=== PATIENT | female | born 1995 | race African-American/Black ===

== ENCOUNTER 2020-01-03 14:35 | Emergency (ER) | payer OTHER, SELFPAY ==
[2020-01-03 14:50] VITALS: BP 125/68; PULSE 83; RESP 16; TEMP 36.9; O2SAT 99
--- NOTE | 2020-01-03 14:56 | ED.SKABFB ---
HPI - Skin/Abscess/Foreign Bdy General Chief complaint: Skin/Abscess/Foreign Body Stated complaint: rash Time Seen by Provider: 01/03/20 14:56 Source: patient Mode of arrival: ambulatory Limitations: no limitations History of Present Illness HPI narrative: Ladonna Brooks is a 24 yo female with no PMH who comes to express care with [facility] under bilatrral underarms. It started a few days ago. Patient has changed deodorant and laundry detergent in the last week Related Data Home Medications Medication Instructions Recorded Confirmed norethindrone-e.estradiol-iron 1 tablet PO DAILY 01/03/20 01/03/20 [Blisovi 24 Fe] Allergies Allergy/AdvReac Type Severity Reaction Status Date / Time No Known Allergies Allergy Unknown Verified 01/03/20 14:53 Review of Systems Review of Systems: Narrative: CONSTITUTIONAL: Denies fever, chills, sweats. EYES: Denies visual changes, redness, discharge. ENT: Denies rhinorrhea, congestion, sore throat, otalgia. CARDIOVASCULAR: Denies chest pain, palpitations, edema. RESPIRATORY: Denies dyspnea, wheezing, cough GASTROINTESTINAL: Denies abdominal pain, nausea, vomiting, diarrhea. GENITOURINARY: Denies dysuria, hematuria, abnormal discharge SKIN: Has rash under axilla bilaterally NEUROLOGIC: Denies numbness, or focal weakness. PSYCHIATRIC: Denies anxiety or depression. [facility] Family History Family History Other Hypertension Social History Social History Smoking status: Never smoker Alcohol intake: never Comments Medical social and surgical history is been reviewed; these histories are relevant to the reason patient is seen today Exam Narrative: Exam Narrative: GENERAL: This is a well-nourished, well-developed patient, in mild distress. HEAD: normocephalic, atraumatic. EYES: PERRL. Sclera clear/white. Vision is grossly intact. EARS: External ears normal, auditory canals clear and without drainage, TMs normal without perforation. Hearing grossly intact. NOSE: External nose normal without nasal discharge, nares without redness, no rhinorrhea. THROAT: Mucous membranes moist, posterior pharynx NECK: Neck supple, non-tender CARDIOVASCULAR: Regular rate and rhythm without murmurs, gallops, or rubs. RESPIRATORY: Clear to auscultation. Breath sounds equal bilaterally. No wheezes, rales, or rhonchi. GASTROINTESTINAL: Abdomen soft, non-tender, SKIN: warm, intact with no suspicious lesions , bilateral rash near under arms, mildly paretic and red, papular NEURO: awake, alert, and oriented to person, place and time. There were no obvious focal neurologic abnormalities. Steady gait EXTREMITIES: Normal range of motion. BACK: Nontender without deformity Course Course Emergency Course: Started on Benadryl and hydrocortisone cream; is not changing multiple care products at same time Vital Signs Vital signs: Vital Signs Temperature 98.5 F 01/03/20 14:50 Pulse Rate 83 01/03/20 14:50 Respiratory Rate 16 01/03/20 14:50 Blood Pressure 125/68 01/03/20 14:50 Pulse Oximetry 99 01/03/20 14:50 Temperature 98.5 F 01/03/20 14:50 Pulse Rate 83 01/03/20 14:50 Respiratory Rate 16 01/03/20 14:50 Blood Pressure 125/68 01/03/20 14:50 Pulse Oximetry 99 01/03/20 14:50 MDM - Skin/Abscess/Foreign Bdy Differential Diagnosis Differential diagnosis: Likely eczema, insect bites, contact dermatitis and other Discharge Plan Discharge Clinical Impression: Contact dermatitis Qualifiers: Contact dermatitis type: allergic Contact dermatitis trigger: other chemical product Qualified Code(s): L23.5 - Allergic contact dermatitis due to other chemical products Patient Disposition: Home, Self-Care Condition: Stable Instructions: Contact Dermatitis (ED) Prescriptions: New diphenhydramine HCl [Benadryl] 25 mg capsule 25 mg PO Q6H PRN (Reason: itching) Qty:
== END 2020-01-03 15:12 | disposition home or self-care (01) ==
PROVIDERS: Emergency Provider Nurse Practitioner
DX: L23.5 Allergic contact dermatitis due to other chemical products (principal)
CPT/HCPCS: 99213; G0463

== ENCOUNTER 2023-04-05 11:40 | Emergency (ER) | payer OTHER, SELFPAY ==
[2023-04-05 11:50] VITALS: BP 105/90; PULSE 83; RESP 16; TEMP 36.3; O2SAT 100
--- NOTE | 2023-04-05 11:53 | ED.EYEPROB ---
HPI - Eye Problem General Chief complaint: Eye Problems Stated complaint: Cough;Righteye Time Seen by Provider: 04/05/23 11:53 Source: patient Mode of arrival: ambulatory Limitations: no limitations History of Present Illness HPI Narrative: 27 yo F presents with c/o cough at night, nasal congestion for 3 days. Started allergy medication yesterday. Afebrile. Reports redness to R eye starting yesterday. Noticed drainage from R eye this AM. No pain but feels irritated. All systems reviewed and negative except as noted above. Related Data Allergies Allergy/AdvReac Type Severity Reaction Status Date / Time No Known Allergies Allergy Unknown Verified 04/05/23 11:43 Review of Systems Review of Systems: CONSTITUTIONAL: Denies fever, chills, or sweats. EYES: Denies visual changes. Reports redness, discharge right eye. ENT: Reports rhinorrhea, congestion. Denies sore throat, or otalgia. CARDIOVASCULAR: Denies chest pain, palpitations, or edema. RESPIRATORY: Reports cough. Denies dyspnea. GASTROINTESTINAL: Denies abdominal pain, nausea, vomiting, or diarrhea. GENITOURINARY: Denies dysuria or hematuria. SKIN: Denies rash or itching. MUSCULOSKELETAL: Denies back pain, joint pain, or myalgia. NEUROLOGIC: Denies headache, numbness, or weakness. PSYCHIATRIC: Denies anxiety or depression. All other systems reviewed are negative, except as documented in HPI. PMFSH Family History Family History (System 01/04/20 @ 07:59 by Cristy Brito) Other Hypertension Social History Social History (System 01/04/20 @ 07:59 by Cristy Brito) Smoking status: Never smoker Alcohol intake: never Comments At time of signature, agree with nursing past medical, surgical, social and family history. There is no relevant family history pertinent to the presenting complaint. Exam Narrative: GENERAL: This is a well-nourished, well-developed patient, in no apparent distress. HEAD: normocephalic, atraumatic. EYES: PERRL. Sclera and conjunctiva right eye erythematous, injected. Yellow drainage from right eye. Left eye is normal. Vision is grossly intact. EARS: External ears normal, auditory canals clear and without drainage, TMs normal without perforation. Hearing grossly intact. NOSE: External nose normal with clear postnasal drainage with erythema to both nares. THROAT: Mucous membranes moist, no erythema swelling or exudates to posterior pharynx. Clear postnasal drainage noted. NECK: Neck supple, non-tender without lymphadenopathy, masses or thyromegaly. CARDIOVASCULAR: Regular rate and rhythm without murmurs, gallops, or rubs. RESPIRATORY: Clear to auscultation. Breath sounds equal bilaterally. No wheezes, rales, or rhonchi. SKIN: warm, Dry, intact with no suspicious lesions or rash, good texture and turgor. NEURO: awake, alert, and oriented to person, place and time. There were no obvious focal neurologic abnormalities. EXTREMITIES: No joint tenderness, effusion, or edema noted. Course Course Level of Care: Express Care Visit Vital Signs Vital signs: Vital Signs Temperature 36.3 C L 04/05/23 11:50 Pulse Rate 83 04/05/23 11:50 Respiratory Rate 16 04/05/23 11:50 Blood Pressure 105/90 04/05/23 11:50 Pulse Oximetry 100 04/05/23 11:50 Oxygen Delivery Room Air 04/05/23 11:50 Temperature 36.3 C L 04/05/23 11:50 Pulse Rate 83 04/05/23 11:50 Respiratory Rate 16 04/05/23 11:50 Blood Pressure 105/90 04/05/23 11:50 Pulse Oximetry 100 04/05/23 11:50 Oxygen Delivery Room Air 04/05/23 11:50 Reviewed MDM - Eye Problem MDM Narrative Medical decision making narrative: Patient is aware of diagnosis, understands and agrees to treatment plan. Anticipatory guidance given. Patient agrees to follow-up as directed and is aware of reasons to seek care at the emergency department. Portions of this record may have been created with voice recognition software Differential Diagnosis
== END 2023-04-05 12:04 | disposition home or self-care (01) ==
PROVIDERS: Emergency Provider Nurse Practitioner Family; PCP Internal Medicine
DX: J01.90 Acute sinusitis, unspecified (principal); H10.31 Unspecified acute conjunctivitis, right eye
CPT/HCPCS: 99203; G0463

== ENCOUNTER 2023-04-06 15:41 | Emergency (ER) | payer SELFPAY ==
[2023-04-06 16:01] VITALS: BP 117/75; PULSE 102; RESP 16; TEMP 36.5; O2SAT 100
--- NOTE | 2023-04-06 16:17 | ED.URI ---
HPI - URI/Sore Throat General Chief Complaint: Upper Respiratory Infection Stated Complaint: SWOLLEN THROAT Time Seen by Provider: 04/06/23 16:11 Source: patient and RN notes reviewed Mode of arrival: ambulatory Limitations: no limitations History of Present Illness HPI Narrative: Patient presents today complaining of sore throat that started yesterday and is worse today with congestion, postnasal drip, body aches and chills. Denies fever. She was seen yesterday at [facility] and treated for pinkeye. She has been taking TheraFlu and Tylenol as well as allergy medication without much relief. Related Data Home Medications Medication Instructions Recorded Confirmed adapalene 0.1 %-benzoyl peroxide 0.01 ea topical DAILY 04/06/23 04/06/23 2.5 % topical gel with pump Allergies Allergy/AdvReac Type Severity Reaction Status Date / Time No Known Allergies Allergy Unknown Verified 04/06/23 15:49 Review of Systems Review of Systems: CONSTITUTIONAL: Denies fever, or sweats+ body aches, chills. EYES: Denies visual changes, redness, or discharge. ENT: Denies rhinorrhea, or otalgia.+ congestion, sore throat, postnasal drip CARDIOVASCULAR: Denies chest pain, palpitations, or edema. RESPIRATORY: Denies cough or dyspnea. GASTROINTESTINAL: Denies abdominal pain, nausea, vomiting, or diarrhea. GENITOURINARY: Denies dysuria or hematuria. SKIN: Denies rash, itching, or wounds. MUSCULOSKELETAL: Denies back pain, joint pain, or myalgia. NEUROLOGIC: Denies headache, numbness, tingling, or weakness. PSYCH: Denies depression or anxiety. PMFSH Family History Family History Other Hypertension Social History Social History Smoking status: Never smoker Alcohol intake: never Comments At time of signature, I have reviewed and agree with nursing past medical, surgical, social and family history unless otherwise noted. Please see nursing chart for further information. There is no relevant family history pertinent to the presenting complaint Exam Narrative: GENERAL: Well-appearing, well-nourished, and in no acute distress. HEAD: Normocephalic, atraumatic. EYES: EOMI. No redness or drainage. Conjunctivae normal. ENT: Mucous membranes pink and moist. Nares clear. No rhinorrhea. TMs normal bilaterally. Throat erythematous. Tonsils 3+ with white exudate. Uvula midline. NECK: Normal AROM. Bilaterally anterior cervical chain lymphadenopathy.Supple. CHEST: No respiratory distress. Clear to auscultation. HEART: Regular rate and rhythm. No murmur appreciated. Normal peripheral pulses. EXTREMITIES: Normal range of motion. No edema. SKIN: Warm, dry, no rash. Capillary refill normal. Normal skin turgor. NEURO: No focal deficits. Alert and oriented x3. Gait steady. PSYCH: Normal affect. No signs of depression or anxiety. Course Course Level of Care: Express Care Visit Vital Signs Vital signs: Vital Signs Temperature 97.7 F 04/06/23 16:01 Pulse Rate 102 H 04/06/23 16:01 Respiratory Rate 16 04/06/23 16:01 Blood Pressure 117/75 04/06/23 16:01 Pulse Oximetry 100 04/06/23 16:01 Temperature 97.7 F 04/06/23 16:01 Pulse Rate 102 H 04/06/23 16:01 Respiratory Rate 16 04/06/23 16:01 Blood Pressure 117/75 04/06/23 16:01 Pulse Oximetry 100 04/06/23 16:01 Reviewed MDM - URI/Sore Throat MDM Narrative Medical decision making narrative: Rapid strep positive. Will treat with amoxicillin. Discussed [id number]-[id number] treatment as well. Anticipatory guidance given. Differential Diagnosis Differential diagnosis: Likely upper respiratory infection, viral infection, pharyngitis and other (Strep throat) Lab Data Attestation: I reviewed the patient's lab results. Labs: Strep Screen Positive Group A Strep *(Reference R
== END 2023-04-06 16:23 | disposition home or self-care (01) ==
PROVIDERS: Emergency Provider Nurse Practitioner; PCP Internal Medicine
DX: J02.0 Streptococcal pharyngitis (principal)
CPT/HCPCS: 87880; 99213; G0463

== ENCOUNTER 2023-09-15 15:49 | Emergency (ER) | payer MEDICAID, SELFPAY ==
--- NOTE | 2023-09-15 15:53 | ED.URI ---
HPI - URI/Sore Throat General Chief Complaint: Upper Respiratory Infection Stated Complaint: Lightheaded;Cough Time Seen by Provider: 09/15/23 15:59 Source: patient, RN notes reviewed and old records reviewed Mode of arrival: ambulatory Limitations: no limitations History of Present Illness HPI Narrative: 28-year-old female presents to the [facility] with cough, feeling lightheaded, body aches, runny nose that started 3 days ago Tylenol and [id number] cold and flu medicine Treatments prior to arrival: acetaminophen and cold medicine Related Data Home Medications Medication Instructions Recorded Confirmed adapalene 0.1 %-benzoyl peroxide 0.01 ea topical DAILY 04/06/23 09/15/23 2.5 % topical gel with pump Allergies Allergy/AdvReac Type Severity Reaction Status Date / Time No Known Allergies Allergy Unknown Verified 09/15/23 15:56 Review of Systems Review of Systems: All systems reviewed & are unremarkable except as noted in HPI and below Constitutional: Constitutional: Reports as per HPI, Reports body ache(s) and Reports fatigue Eyes: Eyes: Reports no additional eye complaints ENT: Reports as per HPI Cardiovascular: Cardiovascular: Reports no additional cardiovascular complaints, Denies chest pain and Denies dyspnea Respiratory: Respiratory: Reports as per HPI, Denies chest congestion, Reports cough and Denies dyspnea Gastrointestinal: Gastrointestinal: Reports no additional gastrointestinal complaints, Denies abdominal pain, Denies nausea and Denies vomiting Musculoskeletal: Musculoskeletal: Reports no additional musculoskeletal complaints Integumentary/Breasts: Skin/Breast: Reports system reviewed and no additional complaints, except as docu Neurologic: Reports system reviewed and no additional complaints, except as documented Psychiatric: Psychiatric: Reports no additional psychiatric complaints Allergic/Immunologic: Allergic/Immunologic: Reports no additional allergic/immunologic complaints PMFSH Family History Family History Other Hypertension Social History Social History Smoking status: Never smoker Alcohol intake: never Comments At the time of my signature, I reviewed and agree with the nursing past medical, surgical, social, and family history. There is no relevant family history pertinent to the patient complaint. Exam Const: General: cooperative, healthy appearing, comfortable, no acute distress, well developed, alert and well nourished Nutritional Appearance: well nourished Orientation/consciousness: patient oriented x3 Limitations: no limitations HENMT: Head: normal to inspection Ears: hearing grossly normal bilaterally and external ears normal Face/Nose/Sinus: Normal external nose present, Normal nares present, Normal nasal mucous membranes and turbinates present, Nasal discharge present clear bilateral, normal facial exam and face symmetric Face and sinus: normal facial exam and face symmetric Mouth: Yes Normal oral and palatal mucosa present, Yes lip normal and Yes moist mucous membranes Throat: posterior oropharynx normal and uvula midline Eyes: General: appearance normal, both eyes and all related structures Alignment and Position: alignment normal Periorbital: periorbital findings normal Pupils: Equal, round and reactive pupils present EOM: EOMs intact bilaterally Neck: Neck: normal visual inspection, full ROM, no lymphadenopathy and no meningeal signs Chest: Chest palpation & inspection: normal inspection of the chest Resp: Effort & Inspection: normal respiratory effort and able to speak in complete sentences Auscultation: clear to auscultation bilaterally, no crackles, no rales, no rhonchi and no wheezes Cardio: Rate: regular rate Rhythm: regular rhythm Back/Spine/Pelvis: Cervical Spine: cervical ROM normal Skin: General skin exam: normal
[2023-09-15 16:03] VITALS: BP 120/77; PULSE 116; RESP 16; TEMP 38; O2SAT 99
== END 2023-09-15 16:17 | disposition home or self-care (01) ==
PROVIDERS: Emergency Provider Nurse Practitioner; PCP Internal Medicine
DX: J10.1 Influenza due to other identified influenza virus with other respiratory manifestations (principal); Z20.822 Contact with and (suspected) exposure to COVID-19
CPT/HCPCS: 87426; 87804; 99213; G0463

== ENCOUNTER 2024-10-14 18:33 | Emergency (ER) | payer OTHER, SELFPAY ==
[2024-10-14 18:57] VITALS: BP 126/84; PULSE 101; RESP 16; TEMP 36.4; O2SAT 100
--- NOTE | 2024-10-14 19:18 | ED.GENADULT ---
HPI - General Adult General Chief complaint: Weakness Stated complaint: TIRED/LIGHT HEADED Time Seen by Provider: 10/14/24 19:05 Source: patient, RN notes reviewed and old records reviewed Mode of arrival: ambulatory Limitations: no limitations History of Present Illness HPI narrative: 29 year old female who resents to express care with complaints of feeling fatigued and lightheaded since last night and worse in the light. Patient reports that she has been having some sinus congestion drainage and pressure for the past 2-3 weeks and has been using saline rinses and nasal flushes. She states that she started taking Advil cold and sinus today . Patient voices concern with symptoms mother diagnosed with influenza 2 days ago. MD complaint: fatigued lightheaded sinus congestion and pressure Onset (ago): week(s) (2-3 weeks sinus congestion and pressure, lightheaded since yesterday evening) Treatments prior to arrival: other (saline flushes and nasal rinses., Advil cold and sinus) Related Data Home Medications ?Medication ?Instructions ?Recorded ?Confirmed ?Last Taken ?Type norethindrone 1 mg-ethinyl tablet 10/14/24 Unknown History estradiol 20 mcg (24)-iron 75 mg (4) tablet (Blisovi 24 Fe) Allergies Allergy/AdvReac Type Severity Reaction Status Date / Time No Known Allergies Allergy Unknown Verified 10/14/24 18:51 Review of Systems Review of Systems: CONSTITUTIONAL: reports malaise, no chills, sweats, or fever. exhausted EYES: Denies visual changes, redness, or discharge. ENT: Positive for rhinorrhea, congestion, sinus pain, no otalgia and no sore throat. CARDIOVASCULAR: Denies chest pain, palpitations, or edema. RESPIRATORY: Reports cough.? Denies dyspnea. GASTROINTESTINAL: Denies abdominal pain, nausea, vomiting, diarrhea SKIN: Denies rash or itching. MUSCULOSKELETAL: Denies myalgia. NEUROLOGIC: some headache. All systems reviewed & are unremarkable except as noted in HPI and below PMFSH Past Medical History Medical History (Updated 10/18/24 @ 21:04 by Johanne Tuttle NP) History of strep sore throat Family History Family History Other Hypertension Social History Social History (Reviewed 01/25/24 @ 18:39 by TIN Flores Smoking status: Never smoker Alcohol intake: never Comments At time of signature, agree with nursing past medical, surgical, social and family history. There is no relevant family history pertinent to the presenting complaint Exam Narrative: GENERAL: Well-appearing, well-nourished, and in no acute distress. HEAD: Normocephalic EYES: PERRLA, conjunctivae clear ENT: Nares clear, turbinates edematous and erythematous, clear discharge sinus pressure and headache pain. Mucous membranes moist. TM pearly hopkins with dull light reflex bilaterally; no tragal tenderness. Oropharynx erythematous without lesions. Tonsils not enlarged and without exudate, no drooling, no hoarseness, no trismus, uvula midline.post nasal drainage NECK: Supple. No lymphadenopathy CHEST: Clear to auscultation, breath sounds equal. No wheezing, rhonchi, rales, or stridor. No respiratory distress, speaks in full sentences.no acute cough noted SAO2 100% on room air HEART: Regular rate and rhythm. No murmur heard. SKIN: Warm, dry, no rash. NEURO: Alert and oriented x3. PSYCH: Normal mood and affect Course Course Emergency Course: Patient is aware of diagnosis, understands and agrees to treatment plan.? Anticipatory guidance given.? Patient agrees to follow-up as directed and is aware of reasons to seek care at the emergency department. Portions of this record may have been created with voice recognition software Level of Care: Express Care Visit Vital Signs Vital signs: Vital Signs Temperature 36.4 C L 10/14/24 18:57 Pulse Rate 101 H 10/14/24 18:57 Respiratory Rate 16 10/14/24 18:57 Blood Pressure 126/84 10/14/24 18:57 Pulse Oximetry 100 10/14/24 18:57 Temperature 36.4 C L 10/14/24 18:57 Pulse Rate 101 H 10/14/24 18:57 Respiratory Rate 16 10/14/24 18:57 Blood Pressure 126/84 10/14/24 18:57 Pulse Oximetry 100 10/14/24 18:57 Reviewed Medical Decision Making Differential Diagnosis Differential Diagnosis: URI, sinusitis, viral infection, influenza, COVID Medical Records Medical records reviewed: Yes I reviewed the external patient's medical records. Vital Signs Vital Signs: Vital Signs Temperature 36.4 C L 10/14/24 18:57 Pulse Rate 101 H 10/14/24 18:57 Respiratory Rate 16 10/14/24 18:57 Blood Pressure 126/84 10/14/24 18:57 Pulse Oximetry 100 10/14/24 18:57 Temperature 36.4 C L 10/14/24 18:57 Pulse Rate 101 H 10/14/24 18:57 Respiratory Rate 16 10/14/24 18:57 Blood Pressure 126/84 10/14/24 18:57 Pulse Oximetry 100 10/14/24 18:57 Lab Data Lab results reviewed: Yes I reviewed the patient's lab results. Lab results narrative: Influenza A negative. Influenza B negative Covid antigen negative Labs: Lab Results 10/14/24 Range/Units 19:38 POC Influenza A Ag Negative (Negative) POC Influenza B Ag Negative (Negative) POC SARS CoV-2 Ag Negative (Negative) reviewed Critical Care Time Critical Care Time Critical Care Time: No Discharge Plan Discharge Clinical Impression: Sinusitis Qualifiers: Sinusitis location: pansinusitis Chronicity: acute Recurrence: not specified as recurrent Qualified Code(s): J01.40 - Acute pansinusitis, unspecified Patient Disposition: Home, Self-Care Condition: Stable Instructions: Antibiotic Form, Sinusitis (ED) Additional Instructions: Increase fluids especially juices and water [id number] cough and cold medicine of your choice for your symptoms Zyrtec Claritin or Gaye daily antibiotic as prescribed complete all doses nasal saline flush as needed Tylenol or ibuprofen for any fever pain heat to the face 20-30 minutes 4-6 times a day for pain Salt water gargles, throat lozenges or throat sprays as desired If your symptoms persist, change or worsen significantly before you can contact your personal physician then please, without delay, go to the emergency department for further evaluation. Follow-up with PCP in 7-10 days or sooner if needed Follow up with PCP soon in regards to your blood pressure which is elevated above threshold for referral. Blood pressure above 120/80 may indicate pre-hypertension. 126/84 minimal elevation Patient Language: Maori Prescriptions: New amoxicillin-pot clavulanate 875-125 mg tablet 1 tablet PO Q12H Qty: 20 0RF Rx Instructions: take all doses of oral medication as prescribed No Action Blisovi 24 Fe 1 mg-20 mcg (24)/75 mg (4) tablet Follow-up/Referrals: Adam,Oscar Varner MD [Primary Care Provider] - Time of Disposition: 19:24 Quality [place] Coma Scale Eyes: Open Verbal: Oriented and Alert Motor: Follows Commands Megan Coma Total Score: 15
[2024-10-14 19:39] LABS: EDCOVIDSCREEN Negative (Negative); EDINFLUASCREEN Negative (Negative); EDINFLUBSCREEN Negative (Negative)
== END 2024-10-14 19:28 | disposition home or self-care (01) ==
PROVIDERS: Emergency Provider Registered Nurse; PCP Internal Medicine
DX: J01.40 Acute pansinusitis, unspecified (principal); Z20.822 Contact with and (suspected) exposure to COVID-19
CPT/HCPCS: 87426; 87804; 99213; G0463

== ENCOUNTER 2024-12-18 10:35 | Emergency (ER) | payer OTHER, SELFPAY ==
[2024-12-18 10:45] VITALS: BP 120/76; PULSE 90; RESP 16; TEMP 36.6; O2SAT 100
--- NOTE | 2024-12-18 10:45 | ED.EYEPROB ---
HPI - Eye Problem General Chief complaint: Eye Problems Stated complaint: EYE IRRITATION Time Seen by Provider: 12/18/24 10:46 Source: patient and RN notes reviewed Mode of arrival: ambulatory Limitations: no limitations History of Present Illness HPI Narrative: 29-year-old female presents with concern for bilateral eye irritation. Reports yesterday her eyes seemed a little pink an or irritated overnight. She took her contacts out last night put new ones in this morning. She usually sleeps in her contacts. She denies any current eye pain, vision changes, drainage. MD chief complaint: eye redness Related Data Home Medications ?Medication ?Instructions ?Recorded ?Confirmed ?Last Taken ?Type norethindrone 1 mg-ethinyl tablet 10/14/24 Unknown History estradiol 20 mcg (24)-iron 75 mg (4) tablet (Blisovi 24 Fe) Allergies Allergy/AdvReac Type Severity Reaction Status Date / Time No Known Allergies Allergy Unknown Verified 12/18/24 10:50 Review of Systems Review of Systems: CONSTITUTIONAL: Denies malaise, chills, sweats, or fever. EYES: Denies visual changes. Reports redness, irritation. Denies discharge. ENT: Denies rhinorrhea, congestion, sinus pain, otalgia or sore throat. SKIN: Denies rash or itching. NEUROLOGIC: Denies numbness, weakness, or headache. PSYCHIATRIC: Denies anxiety or depression. All systems reviewed & are unremarkable except as noted in HPI and below PMFSH Past Medical History Medical History (Updated 12/18/24 @ 10:51 by Angela Abad NP) History of strep sore throat Family History Family History Other Hypertension Social History Social History Smoking status: Never smoker Alcohol intake: never Comments At time of signature, agree with nursing past medical, surgical, social and family history. There is no relevant family history pertinent to the presenting complaint Exam Narrative: GENERAL: Well-appearing, well-nourished, and in no acute distress. HEAD: Normocephalic, atraumatic. EYES: PERRLA and EOMI. No nystagmus. Bilateral sclera and conjunctivae clear, no drainage. Upper and lower eyelid unremarkable, no periorbital edema noted ENT: Nares clear. Mucous membranes moist. NECK: Supple. CHEST: No respiratory distress. Speaks in full sentences. HEART: Regular rate and rhythm. SKIN: Warm, dry, no visible rash. NEURO: Alert and oriented x3. PSYCH: Normal mood and affect Course Course Emergency Course: Patient is aware of diagnosis, understands and agrees to treatment plan. Anticipatory guidance given. Patient agrees to follow-up as directed and is aware of reasons to seek care at the emergency department. Portions of this record may have been created with voice recognition software Level of Care: Express Care Visit Vital Signs Vital signs: Reviewed. MDM - Eye Problem MDM Narrative Medical decision making narrative: Consideration of the following conditions may be warranted for the presenting problem, they are not final diagnoses: Bacterial conjunctivitis, allergic conjunctivitis, viral conjunctivitis, foreign body, blepharitis, chalazion, hordeolum, corneal abrasion, preseptal cellulitis, orbital cellulitis. No evidence of proptosis, ophthalmoplegia, vision loss, pain with eye movement. Exam findings show no acute concerns or changes; patient is non-toxic appearing and is in no distress. Patient is appropriate for outpatient treatment and follow-up. Critical Care Time Critical Care Time Critical Care Time: No Discharge Plan Discharge Clinical Impression: Irritation of both eyes Patient Disposition: Home Condition: Stable Instructions: General Patient Instructions Additional Instructions: 1) Please follow-up with your primary care doctor or eye doctor as needed. 2) If you have any urgent concerns please go to the ER. 3) Please continue taking your home medications as usual. Patient Language: [place] Citizen Prescriptions: No Action Blisovi 24 Fe 1 mg-20 mcg (24)/75 mg (4) tablet amoxicillin-pot clavulanate 875-125 mg tablet 1 tablet PO Q12H Qty: 20 0RF Rx Instructions: take all doses of oral medication as prescribed Follow-up/Referrals: Adam,Oscar Varner MD [Primary Care Provider] - Time of Disposition: 10:51
== END 2024-12-18 10:52 | disposition home or self-care (01) ==
PROVIDERS: Emergency Provider Nurse Practitioner; PCP Internal Medicine
DX: H57.89 Other specified disorders of eye and adnexa (principal)
CPT/HCPCS: 99211; G0463

== ENCOUNTER 2025-04-03 11:34 | Emergency (ER) | payer BC, SELFPAY ==
--- NOTE | ~2025-04-03 | XR_ITS ---
XR foot LT min 3V 04/03/2025 11:54 INDICATION: Left foot pain PROCEDURE: 4 views left foot COMPARISON: No prior studies FINDINGS: Fracture, dislocation or subluxation is not identified. The soft tissues appear within norm al limits. No foreign bodies are identified. IMPRESSION: 1: NO ACUTE BONE OR JOINT ABNORMALITY IDENTIFIED. Reviewed, dictated and finalized at location A.
[2025-04-03 11:45] VITALS: BP 110/77; PULSE 101; RESP 16; TEMP 36.1; O2SAT 100
--- NOTE | 2025-04-03 11:45 | ED.GENADULT ---
HPI - General Adult General Chief complaint: Extremity Injury, Lower Stated complaint: left foot pain Time Seen by Provider: 04/03/25 11:38 Source: patient Mode of arrival: ambulatory Limitations: no limitations History of Present Illness HPI narrative: Pt is a 29 y/o female presenting with c/o pain to the L. foot x 1 month. She states she thinks she dropped something on her L. foot 1 month ago. No tx initiated [employer]. No paresthesias. No additional complaints. Related Data Home Medications ?Medication ?Instructions ?Recorded ?Confirmed ?Last Taken ?Type norethindrone 1 mg-ethinyl tablet 10/14/24 Unknown History estradiol 20 mcg (24)-iron 75 mg (4) tablet (Blisovi 24 Fe) semaglutide (weight loss) 1.7 mg subcut 04/03/25 Unknown History mg/0.75 mL subcutaneous pen injector (Wegovy) Allergies Allergy/AdvReac Type Severity Reaction Status Date / Time No Known Allergies Allergy Unknown Verified 04/03/25 11:42 Review of Systems Review of Systems: CONSTITUTIONAL: Denies body aches, fever, chills, or sweats. EYES: Denies visual changes, redness, or discharge. ENT: Denies rhinorrhea, congestion, sore throat, or otalgia. CARDIOVASCULAR: Denies chest pain, palpitations, or edema. RESPIRATORY: Denies cough or dyspnea. GASTROINTESTINAL: Denies abdominal pain, nausea, vomiting, or diarrhea. GENITOURINARY: Denies dysuria or hematuria. SKIN: Denies rash, itching, or wounds. MUSCULOSKELETAL: reports pain to the L. foot Denies back pain NEUROLOGIC: Denies headache, numbness, tingling, or weakness. PSYCH: Denies depression or anxiety. All systems reviewed & are unremarkable except as noted in HPI and below PMFSH Past Medical History Medical History History of strep sore throat Family History Family History Other Hypertension Social History Social History Smoking status: Never smoker Alcohol intake: never Exam Narrative: GENERAL: Well-appearing, well-nourished, and in no acute distress. HEAD: Normocephalic, atraumatic. EYES: EOMI. No redness or drainage. Conjunctivae normal. NECK: Normal AROM. Supple. CHEST: No respiratory distress. HEART: Regular rate. Normal peripheral pulses. MUSCULOSKELETAL: Mild TTP to the distal 4th and 5th metatarsals on the L. foot-no crepitus, erythema, edema, ecchymosis. +FROM +DNVI to the LLE SKIN: Warm, dry, no rash. Capillary refill normal. Normal skin turgor. NEURO: No focal deficits. Alert and oriented x3. Gait steady. PSYCH: Normal affect. No signs of depression or anxiety. Course Course Level of Care: Express Care Visit Vital Signs Vital signs: Vital Signs Temperature 96.9 F L 04/03/25 11:45 Pulse Rate 101 H 04/03/25 11:45 Respiratory Rate 16 04/03/25 11:45 Blood Pressure 110/77 04/03/25 11:45 Pulse Oximetry 100 04/03/25 11:45 Temperature 96.9 F L 04/03/25 11:45 Pulse Rate 101 H 04/03/25 11:45 Respiratory Rate 16 04/03/25 11:45 Blood Pressure 110/77 04/03/25 11:45 Pulse Oximetry 100 04/03/25 11:45 Medical Decision Making Vital Signs Vital Signs: Vital Signs Temperature 96.9 F L 04/03/25 11:45 Pulse Rate 101 H 04/03/25 11:45 Respiratory Rate 16 04/03/25 11:45 Blood Pressure 110/77 04/03/25 11:45 Pulse Oximetry 100 04/03/25 11:45 Temperature 96.9 F L 04/03/25 11:45 Pulse Rate 101 H 04/03/25 11:45 Respiratory Rate 16 04/03/25 11:45 Blood Pressure 110/77 04/03/25 11:45 Pulse Oximetry 100 04/03/25 11:45 Imaging Data Attestation: I personally reviewed and interpreted this imaging study as follows: (NAF) Discharge Plan Discharge Clinical Impression: Acute pain of left foot Patient Disposition: Home Condition: Stable Instructions: Foot Contusion (ED) Additional Instructions: Go straight to ER should your symptoms become worse or should any new symptoms develop Patient Language: [place]an Prescriptions: No Action Blisovi 24 Fe 1 mg-20 mcg (24)/75 mg (4) tablet Wegovy 1.7 mg/0.75 mL pen injector SUBCUT Follow-up/Referrals: Adam,Oscar Varner MD [Primary Care Provider] - 04/03/25 Time of Disposition: 12:10
== END 2025-04-03 12:14 | disposition home or self-care (01) ==
PROVIDERS: Emergency Provider Registered Nurse; PCP Internal Medicine
DX: M79.672 Pain in left foot (principal)
CPT/HCPCS: 73630; 99213; G0463

== ENCOUNTER 2025-07-08 22:09 | Emergency (ER) | payer BC, SELFPAY ==
--- OUTSIDE RECORDS SUMMARY | 2017-08-01 02:09 | XMS_ITS | Continuity of Care Document ---
Author Organization [facility] Address [address] [place] [address] Phone Care Team Providers Care Key Account Coordinator Name Role Phone Thueshelia PTColte Unavailable Unavailable Procedures Procedure Date Therapeutic Exercise Therapeutic Activities Neuromuscular Re-Ed Manual Therapy PT Evaluation Low Complexity Therapeutic Exercise Neuromuscular Re-Ed Manual Therapy Advance Directives Directive Yes / No Effective Date File Name No Information Encounters Encounter Description Practice Location Reason(s) For Visit Diagnoses Date Provider Providers Copied on Encounter [facility], [address], [place], [place], [id number], tel:[phone] [place] No Information Jul- 7 Thuet Nakul. [address], [facility], [place]. tel: [phone] [facility], [address], [place], [place], [id number], tel:[phone] [place] No Information Dec-0 7 Thuet Nakul. [address] [facility], [facility] [address], [place], [facility], [place]. tel: [phone] Referring Provider: Wander Salas, [address], [place], [address]. tel:[phone] [facility], [address], [place], [place], [id number], [place] tel:[phone] [place] Concussion without loss of consciousness, subs encntrLabyrinthine dysfunction, unspecified earDizziness and giddinessCervicalgia Headache 6-201 7 uet Nakul. [address] [facility], [address], [place], [address], [place]. tel:[phone] Referring Provider: Wander aSlas, [address], [place], [address]. tel:[phone] Family History Family Member Type Diagnosis Age At Onset No Information Payers Payer name Insurance type Covered republican ID Authoriza tion(s) No Information Social History Type Description Quantity Date Captured Comments Sex Female Smoking Status No Information Chief Complaint And Reason For Visit No Information Reason For Referral Reason For Referral No Information History Of Present Illness Encounter Date Complaint History Of Prese nt Illness No Information Functional Status Date Functional Assessmen t No Information Instructions Date Instruction Additional Infor mation No Information Assessments Type Assessment Date No Information Patient Care Teams Name Effective Dates (start - stop) Status Members No Information
[2025-07-08 22:12] VITALS: BP 116/79; PULSE 109; RESP 20; TEMP 36.5; O2SAT 100
[2025-07-09 00:38] LABS: Alanine Aminotransferase 24 U/L (6-35); Albumin Level 4.4 g/dL (3.5-5.1); Alkaline Phosphatase 84 U/L (38-126); Anion Gap 9 mmol/L (4-12); Aspartate Amino Transferase 36 U/L (14-36); Bilirubin,Total 0.7 mg/dL (0.2-1.3); Blood Urea Nitrogen 10 mg/dL (7-17); Calcium 9.4 mg/dL (8.4-10.2); Carbon Dioxide 26 mmol/L (22-30); Chloride 101 mmol/L (98-107); Estimated CRCL calculation 98 ml/min; Estimated Glomerular Filt Rate > 60; Glucose 79 mg/dL (65-110); Lipase 72 U/L (23-300); Potassium 3.7 mmol/L (3.4-5.0); Sodium 136 mmol/L (137-145); Total Protein 8.4 g/dL (6.3-8.2)
[2025-07-09 00:45] LABS: Add Urine Microscopic? YES; Appearance Urine Cloudy (Clear); Glucose Urine UA Negative (Negative); Leukocyte Esterase Ur Trace LEU/UL (Negative); Need Manual Microscopic Reviewed; Nitrate Urine Negative (Negative); Specific Grav Ur 1.026 (1.001-1.035)
[2025-07-09 00:46] LABS: Hematocrit 42.5 % (37.0-47.0); Hemoglobin 13.5 g/dL (12.0-15.0); Immature Granulocyte Percent A 4.3 % (0-0.5); Lymphocytes Absolute Auto 1.51 K/mm3 (0.9-3.2); Mean Corpuscular HGB Conc 31.8 g/dl (32-36); Mean Corpuscular Hemoglobin 27.5 pg (26-34); Mean Corpuscular Volume 86.6 fl (80-100); Nucleated Red Blood Cells Absolute Auto 0.000 K/mm3 (0.0-0.012); Nucleated Red Blood Cells Perc 0.0 % (0.0-0.2); Platelet Count Result 366 k/mm3 (150-375); Red Blood Count 4.91 M/mm3 (4.2-5.4); White Blood Count 6.3 K/mm3 (4.5-10.0)
[2025-07-09 01:58] LABS: BEDSIDEPREGUCG Negative (Negative)
[2025-07-09] MEDS: KETOROLAC 30 MG/ML VIAL (*BKC) IV PUSH (02:03)
[2025-07-09] MEDS: ONDANSETRON INJ 4 MG/2 ML VIAL IV PUSH (02:03)
[2025-07-09] MEDS: SODIUM CHLORIDE 0.9% IV 1,000 ML 999 ML IV CONT (02:03)
--- NOTE | 2025-07-09 02:11 | ED_ITS ---
HPI - General Adult General Chief complaint: Nausea/Vomiting/Diarrhea Stated complaint: I vomited 8 times today Time Seen by Provider: 07/09/25 01:07 History of Present Illness HPI narrative: 29-year-old female presenting with nausea/vomiting since early this morning. Patient reports she took her GLP-1 yesterday after having not taken it for about a month. She also reports a headache, increased urinary urgency, and generalized abdominal pain. Denies diarrhea, fevers/chills, chest pain/shortness of breath, dysuria, hematuria, increased urinary frequency. States she tried to take Zofran earlier but could not keep it down. Related Data Home Medications ?Medication ?Instructions ?Recorded ?Confirmed ?Last Taken ?Type norethindrone 1 mg-ethinyl tablet 10/14/24 Unknown Hi story estradiol 20 mcg (24)-iron 75 mg (4) tablet (Blisovi 24 Fe) semaglutide (weight loss) 1.7 mg subcut 04/03/25 Unkn own History mg/0.75 mL subcutaneous pen injector (Wegovy) Allergies Allergy/AdvReac Type Severity Reaction Status Date / Time No Known Allergies Allergy Unknown Verified 07/08/25 22:12 Review of Systems 2 Review of Systems: All systems reviewed & are unremarkable except as noted in HPI and below PMFSH Past Medical History Medical History History of strep sore throat Family History Family History Other Hypertension Social History Social History Smoking status: Never smoker Alcohol intake: never Exam 2 Narrative: GENERAL: Appears fatigued. Well-nourished, and in no acute distress. HEAD: Normocephalic, atraumatic. EYES: PERRLA and EOMI. ENT: Nares clear, no rhinorrhea or epistaxis. Mucous membranes moist. Oropharynx without tonsillar hypertrophy exudate or other lesions. Bilateral TMs pearly hopkins non-bulging NECK: Supple. No adenopathy or masses. No carotid bruits or JVD CHEST: Clear to auscultation. No respiratory distress. No wheezes rales or rhonchi HEART: Regular rate and rhythm. No murmur heard. Normal peripheral pulses. ABDOMEN: Soft and nondistended. Decreased bowel sounds and mild diffuse TTP. EXTREMITIES: Normal range of motion. No edema. SKIN: Warm, dry, no rash. NEURO: No focal deficits. Alert and oriented x3. PSYCH: Normal mood and affect Course Vital Signs Vital signs: Vital Signs Temperature 97.7 F 07/08/25 22:12 Pulse Rate 109 H 07/08/25 22:12 Respiratory Rate 20 07/08/25 22:12 Blood Pressure 116/79 07/08/25 22:12 Pulse Oximetry 100 07/08/25 22:12 Oxygen Delivery Room Air 07/08/25 22:12 Temperature 97.7 F 07/08/25 22:12 Pulse Rate 76 07/09/25 03:11 Respiratory Rate 16 07/09/25 03:11 Blood Pressure 115/76 07/09/25 03:11 Pulse Oximetry 99 07/09/25 03:11 Oxygen Delivery Room Air 07/08/25 22:12 Medical Decision Making MDM Narrative Medical decision making narrative: 29-year-old female presenting with nausea/vomiting since early this morning. Patient reports she took her GLP-1 yesterday after having not taken it for about a month. She also reports a headache, increased urinary urgency, and generalized abdominal pain. Denies diarrhea, fevers/chills, hematemesis, chest pain/shortness of breath, dysuria, hematuria, increased urinary frequency. States she tried to take Zofran earlier but could not keep it down. Labs WNL. Urinalysis shows findings consistent with urinary tract infection will be treated outpatient with Keflex. Vitals are stable. Administered 1 L NS, Zofran, and Toradol. Patient reported improvement in symptoms. Advised patient stop taking GLP-1 until she speaks with her PCP. Patient agrees with discussion and after shared medical decision making agrees with plan of care. Reports she already has Zofran at home. All questions were answered to the patient's satisfaction. The patient is appropriate for outpatient treatment and follow-up. Given reasons to return. Medical Records Medical records reviewed: Yes I reviewed the external patient's medical records. Vital Signs Vital Signs: Vital Signs Temperature 97.7 F 07/08/25 22:12 Pulse Rate 109 H 07/08/25 22:12 Respiratory Rate 20 07/08/25 22:12 Blood Pressure 116/79 07/08/25 22:12 Pulse Oximetry 100 07/08/25 22:12 Oxygen Delivery Room Air 07/08/25 22:12 Temperature 97.7 F 07/08/25 22:12 Pulse Rate 76 07/09/25 03:11 Respiratory Rate 16 07/09/25 03:11 Blood Pressure 115/76 07/09/25 03:11 Pulse Oximetry 99 07/09/25 03:11 Oxygen Delivery Room Air 07/08/25 22:12 Lab Data Lab results reviewed: Yes I reviewed the patient's lab results. 07/09/25 00:18 07/09/25 00:18 Labs: Lab Results 07/09/25 07/09/25 07/09/25 Range/Units 00:14 00:18 00:24 WBC 6.3 (4.5-10.0) K/mm3 RBC 4.91 (4.2-5.4) M/mm3 Hgb 13.5 (12.0-15.0) g/dL Hct 42.5 (37.0-47.0) % MCV 86.6 (80-100) fl MCH 27.5 (26-34) pg MCHC 31.8 L (32-36) g/dl RDW 14.0 (11.5-14.5) % Plt Count 366 (150-375) k/mm3 MPV 10.3 (7.4-10.4) fl Immature Gran % (Auto) 4.3 H (0-0.5) % Neut % (Auto) 67.2 (45.5-73.1) % Lymph % (Auto) 23.9 (18.3-44.2) % [place] % (Auto) 3.6 (2.6-8.5) % Eos % (Auto) 0.2 (0-4.4) % Baso % (Auto) 0.8 (0.2-1.2) % Lymph # (Auto) 1.51 (0.9-3.2) K/mm3 [place] # (Auto) 0.2 (0.1-0.6) K/mm3 Eos # (Auto) 0.0 (0-0.3) K/mm3 Baso # (Auto) 0.1 (0.0-0.1) K/mm3 Abs Immat Gran (auto) 0.27 H (0.00-0.031) K/mm3 Absolute Neuts (auto) 4.2 (1.3-6.7) K/mm3 Absolute Nucleated RBC 0.000 (0.0-0.012) K/mm3 Nucleated RBC % 0.0 (0.0-0.2) % Sodium 136 L (137-145) mmol/L Potassium 3.7 (3.4-5.0) mmol/L Chloride 101 (98-107) mmol/L Carbon Dioxide 26 (22-30) mmol/L Anion Gap 9 (4-12) mmol/L BUN 10 (7-17) mg/dL Creatinine 0.75 (0.7-1.0) mg/dL Estim Creat Clear Calc 98 ml/min Estimated GFR > 60 (59 - ) Glucose 79 (65-110) mg/dL Calcium 9.4 (8.4-10.2) mg/dL Total Bilirubin 0.7 (0.2-1.3) mg/dL AST 36 (14-36) U/L ALT 24 (6-35) U/L Alkaline Phosphatase 84 (38-126) U/L Total Protein 8.4 H (6.3-8.2) g/dL Albumin 4.4 (3.5-5.1) g/dL Lipase 72 (23-300) U/L Urine Color Dark yellow (Yellow) Urine Appearance Cloudy H (Clear) Urine pH 6.0 (5.0-9.0) Ur Specific [place] 1.026 (1.001-1.035) Urine Protein 1+ H (Negative) mg/dL Urine Glucose (UA) Negative (Negative) mg/dL Urine Ketones 3+ H (Negative) mg/dL Ur Blood (Man) 3+ H (Negative) Urine Nitrate Negative (Negative) Urine Bilirubin Negative (Negative) Urine Urobilinogen 1.0 (<2.0) mg/dL Add Ur Microanalysis Reviewed Leukocyte Esterase Rfl Trace H (Negative) DARWIN/UL Urine RBC >100 H (0-2) /hpf Urine WBC 11-20 H (0-3) /hpf Ur Squamous Epith Cells Moderate (Few) /hpf Urine Bacteria 3+ H /hpf Urine Casts 3-5 POC Urine HCG, Qual Negative (Negative) Discharge Plan Discharge Clinical Impression: UTI (urinary tract infection), Vomiting Patient Disposition: Home Condition: Stable Instructions: Antibiotic Form, Urinary Tract Infection in Women (ED), Acute Nausea and Vomiting (ED) Additional Instructions: Return to the emergency department if you experience fever, chest pain, shortness of breath, abdominal pain with nausea and vomiting, weakness, numbness/tingling, or any other symptoms that are concerning to you. Take antibiotic as prescribed. Follow up with primary care doctor. Patient Language: Occitan Prescriptions: New cephalexin 250 mg capsule 250 mg PO Q6H Qty: 21 0RF No Action Blisovi 24 Fe 1 mg-20 mcg (24)/75 mg (4) tablet Wegovy 1.7 mg/0.75 mL pen injector SUBCUT Follow-up/Referrals: Adam,Oscar Varner MD [Primary Care Provider, Unknown]
--- OUTSIDE RECORDS SUMMARY | 2025-07-09 02:30 | XMS_ITS | Data Portability ---
Author Organization [employer] [facility] Address [address] [address] Assessment No assessment recorded. Plan of Treatment Reminders Order Date Submit Date Provider Last Modified By Organization Details Last Modified Time Details Appointments None record ed. Lab None record ed. Referral None record ed. Procedures None record ed. Surgeries None record ed. Imaging None record ed. Medication Orders None record ed. Patient TargetsNo targets recorded. Patient InstructionsNo instructions recorded. Reason for Referral None Reported. Problems No Known Problems Medical Equipment None Reported. Allergies No known drug allergies Medications Name Sig Start Date Stop Date Status Note LastModified by Organization Details LastModified Time meloxicam 15 mg tablet active Not Available Not Available No t Available terconazole 0.8 % vaginal cream 2016 completed Not Available Not Available Not Available Epiduo 0.1 %-2.5 % topical gel with pump active Not Available Not Available No t Available Blisovi 24 Fe 1 mg-20 mcg (24)/75 mg (4) tablet active Not Available Not Available N ot Available Vitals Date Recorded Body height Body mass index (BMI) Body weight Heart rate Systolic And Diastolic Provider Name and Address Organization Details Last Updated DateTime 07/25/2017 162.56 cm 25.7 kg/m2 11160.86 g 80 /min 111/68 mm[Hg] Calvin Brandon [employer] 07/25/2017 14:19:27 Social History Question Answer Notes LastModified by Organizat ion Details LastModified Time Tobacco Smoking Status Never Smoker Calvin banks [employer] 07/25/2017 14:20:25 Marital Status Single Informatio n not available 07/25/2017 What Was The Date Of Your Most Recent Tobacco Screening? 07/25/2017 Information not available 03/15/2019 How Much Tobacco Do You Smoke? No Information not available 07/25/2017 What Types Of Sporting Activities Do You Participate In? Basketball Information not available 07/25/2017 Sex: Unknown Functional Status Question Answer Note LastModified by Organizat ion Details LastModified Time What is your level of alcohol consumption? 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 Heavy Information not available 07/25/2017 Mental Status None recorded. Family History Nothing Reported. Medical History Condition Response HIV or AIDS N Coronary Artery Disease N Gout N Kidney Stones N Hyperthyroidism N Head Trauma/Injury Y Hernia N Hypothyroidism N Lung Disease N Blood Clots N COPD N Depression N Pacemaker N Anxiety Disorder N Arthritis N Cancer N Stroke N Leg or Foot Ulcers N Neck Injury N High Cholesterol N Liver Disease N Rheumatoid Arthritis N Fibromyalgia N Headaches N Kidney Disease N Heart Problems N Migraines N Thyroid Problems N Anemia N Multiple Sclerosis N Ulcers N Heart Attack (HI) N Diabetes N Bleeding Disorder N Seizures/Epilepsy N Tuberculosis N Urinary Tract Infection N Back Problems N Diverticulitis N Asthma N Lupus N Peripheral Vascular Disease N Sleep Disorder N GERD/Reflux N Hepatitis N Aneurysm N Heart Disease N Pulmonary Embolism N Hypertension N Osteoporosis N Gynecological HistoryNo gynecological history recorded. Obstetrics History GPAL:G 0 P 0 0 0 0 Past Encounters Encounter ID Performer Location Encounter Start Date Encounter Closed Date Diagnosis/Indication Diagnosis SNOMED-CT Code Diagnosis ICD10 Code Diagnosis IMO Codes Diagnosis Note [id number] Wander Salas MD [facility] [address] [facility] ,[address] [place] [address] 07/25/2017 13:50:19 07/25/2017 16:54:03 Concussion with no loss of consciousness [id number] S06.0X0A Health Concerns Section Related Observation LastModified by Organization Detai ls LastModified Time None Recorded Concern Status LastModified by Organization Details LastModified Time None Recorded Advance Directives Directive None Recorded Payers Insurance Date Sequence Insurance Name Policy Number Policy Oliver Covered Member ID Oliver Member ID Guarantor Name 07/25/2017 1 [employer] - DOS PRIOR TO 21 - [facility] [employer] [employer] Elizabeth Brooks [id number] Ladonna Long Episode No OBEpisode recorded.
--- OUTSIDE RECORDS SUMMARY | 2025-07-09 02:31 | XMS_ITS | Clinical Summary ---
Author Organization [facility] [address] Address [address] [place] [address] Phone Care Team Providers Care Educator Senior Clinical Name Role Phone Oscar Medina MD Primary Care Provider [phone] Allergies No known active allergies Medications norethindrone-e .estradioL-iron (Blisovi 24 Fe) 1 mg-20 mcg (24)/75 mg (4) per tablet Take 1 tablet by mouth daily 84 tablet 3 5 Active adapalene-benzo yl peroxide 0.1-2.5 % gel with pumpIndications :Acne, unspecified acne type APPLY ONCE DAILY TO THE FACE 45 g 1 5 Active semaglutide (Wegovy) 1.7 mg/0.75 mL auto-injectorIn dications:Obesi ty, Class I, BMI 30-34.9 Inject 1.7 mg under the skin every 7 days 3 mL 1 5 Active ondansetron (ZOFRAN) 4 mg tabletIndicatio ns:Nausea and Vomiting Take 1 tablet (4 mg total) by mouth every 8 (eight) hours as needed for nausea or vomiting 21 tablet 5 Active clindamycin (CLEOCIN T) 1 % gel Apply to face once daily. 180 g 1 4 06/14/20 25 Additional Information Patient not taking.Reported on 02/05/2025 Active Problems Problem Noted Date Diagnosed Date Mixed hyperlipidemia 02/05/2025 Assessment & Plan (02/05/2025 6:19 PM CDT): Total cholesterol 235 LDL 159 patient is not on cholesterol medicine recently started GLP 1 therapy Wegovy. Straightening up dose will check lipid level in 3 months in April. Obesity, Class I, BMI 30-34.9 05/23/2024 Assessment & Plan (02/05/2025 6:18 PM CDT): Patient is on would go away she has just started 1 mg dose with a little bit of nausea. Continue titrate up accordingly. She has noticed decreased appetite in his began to lose weight 5 lb in the last 30 days. Comorbidities elevated lipid level. Assessment & Plan (05/23/2024 1:27 PM CDT): 28-year-old lady who is concerned regarding her weight. BMI is 34.6 she is 5 ft 4 weight 201 lb. Patient's comorbidity is hyperlipidemia total cholesterol 235 patient is not diabetic. Discussed with this patient her weight she has tried multiple diets not able to sustain weight loss. Patient has gained 21 lb in 3 years.. 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 Immunization for hepatitis-B . Anxiety 05/23/2024 Assessment & Plan (05/23/2024 1:31 PM CDT): Patient is feels anxiety for several days low intensity she does not have panic attacks. Anxiety revolves around her parents who are getting older. Both parents remains gainfully employed father is a RN and her mother has a supervising in education. My opinion she does not need any medications at this time . If in anxiety increase in the intensity she may benefit from counseling. Cognitive therapy. Her fall was the patient's mind who is stable with hypertension hyperlipidemia and obesity. I am not aware of details on patient's mother's health status. Preventative health care 09/09/2023 Assessment & Plan (02/05/2025 6:16 PM CDT): History and physical completed patient's health risk assessment health maintenance reviewed and addressed. Patient is advised she needs to have 1 final varicella vaccine. 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 Patient is started on Wegovy approximately 6 weeks ago she is tolerating medication. She has no other health concerns other than weight reduction. Assessment & Plan (09/09/2023 2:10 PM TRACK REPAIR PERSON): 28-year-old lady who is here for annual exam she feels well her only active health problems his active. 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 Immunizations reviewed states varicella as needed I have given this information on to the patient to review her old records on immunizations. She has a pharmacist determine if she needs another injection Acne 04/04/2012 Assessment & Plan (09/09/2023 2:13 PM TRACK REPAIR PERSON): Acne well controlled with epiduo- 0.2-2.5% gel with pump./adapalene- benzoyl peroxide. Resolved Problems Problem Noted Date Diagnosed Date Resolved Date School physical exam 06/02/2018 024 Assessment & Plan (04/03/2021 2:00 PM CDT): Patient has to have a school physical. 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 Patient's exam is completely normal. 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 Appropriate forms were filled out BC was necessary and patient was given a copy original forms to forward back to her University. Patient has has on file at the [facility] her immunization record. Assessment & Plan (02/09/2019 5:23 PM CDT): Patient was seen in May for physical exam. She has recently graduated from college in will be going off to graduate school to get a degree in pharmacy pain school physical required. Patient exam is completely normal. Forms are filled out appropriately lab required is a hemoglobin hematocrit. The blood test for TB is also requested. Immunization records reviewed.. I do not have information regarding patient's immunization for metacarpal meningitis. Advised her local per records from her entry into colleges rigidly it may indicate she has received this.. Only immunization given today is tetanus. Assessment & Plan (06/02/2018 5:53 PM CDT): 22-year-old lady here for preventive health exam. Patient no acute distress she review of systems negative other than she used the medication Epiduo for acne. Patient's family history prep hypertension patient patient exam is benign. 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 Encounters Date Type Department Care Team Description 05/06/2025 Telephone [facility] [address] [place] [address] Oscar Medina MD from Last 3 Months Immunizations Immunization Administration Dates Next Due DTP 04/05/2001, 7,01/23/1996,10/11 DTaP 04/09/1998 HPV, Quadrivalent 03/10/2010 HPV, Unspecified 03/10/2010,02/19/2009, 7 Hep A, Pediatric 03/19/2008,02/28/2007 Hep A, Unspecified 03/19/2008,02/28/2007 Hep B, Adolescent or Pediatric 09/19/1996,1995,1995 Hep B, Unspecified 09/19/1996,1995, 995 HiB 04/09/1998, 7,01/23/1996,10/11 Hib (PRP-D) 04/09/1998, 7,01/23/1996,10/11 IPV 04/05/2001 Influenza, Quadrivalent, Ashli l Culture-based MDCK, Preservative Free, Antibiotic Free, Intramuscular 06/01/2018 Influenza, Trivalent, Preser vative Free, Intramuscular 05/21/2024 Influenza, Unspecified 06/01/2023(Deferred: Elif ent Refused) MMR 04/05/2001,09/19/1996 MMRV 03/29/2019 Meningococcal ACWY, Unspecified 12/31/2013,02/28 Meningococcal MCV4P (Menactra) 12/31/2013 Meningococcal Polysaccharide (Menomune) 02/28/2007 OPV 1995,1995 OPV, Unspecified 01/23/1996 PPD TEST 04/05/2001,04/09/1998 PPD TEST, UNSPECIFIED 04/05/2001,04/09/1998 Tdap 02/09/2019, 8,04/19/2018,04/04,04/04/2006 Social History Tobacco Use Types Packs/Day Years Used Date Smoking Tobacco: Never Smokeless Tobacco: Never Tobacco Cessation:Counseling Given: Not Answered PHQ-2 Answer Date Recorded PHQ-2 Total Score (If total score is 3 or more points, staff should administer the PHQ-9) 0 02/05/2025 Comments No Sex and Gender Information Value Date Recorded Sex Assigned at Not on file Legal Sex Female 3:22 AM TRACK REPAIR PERSON Gender Identity Not on file Sexual Orientation Not on file Occupation Industry Job Start Date Job End Date Not on file Not on file Not on file Not on file Obstetrics History Para Term AB IAB SAB Ectopic Multiple Livin g Live Births 2 0 0 0 2 2 0 0 0 0 0 Date Outcome GA Total Labor Labor/2nd/3rd Weight Sex Type Anes PTL Ellen A1 A5 Name Clin IAB IAB Last Filed Vital Signs Vital Sign Reading Time Taken Comments Blood Pressure 112/66 02/05/2025 1:44 PM CDT Pulse 93 02/05/2025 1:44 PM CDT Temperature 36.2 C (97.1 F) 02/05/2025 1:44 PM CDT Respiratory Rate 16 02/05/2025 1:44 PM CDT Oxygen Saturation 98% 02/05/2025 1:44 PM CDT Inhaled Oxygen Concentration - - Weight 81.2 kg (179 lb) 04/30/2025 10:33 AM CDT Height 162.6 cm (5' 4) 02/05/2025 1:44 PM CDT Body Mass Index 30.73 02/05/2025 1:44 PM CDT Plan of Treatment Health Maintenance Due Date Last Done Comments Varicella Vaccines (2 of 2 - 13+ 2-dose series) 04/26/2019 03/29/2019 Cervical Cancer Screening 09/29/2024 09/29/2023 Influenza Vaccine (#1) 2025 05/21/2024, 2017 Depression Screening 02/05/2026 02/05/2025, 05/21/2024, 09/08/2023, Additional history exists Regular Well Visit/Exam 18-64 02/05/2026 02/05/2025, 01/04/2025, 09/29/2023, Additional history exists DTaP/Tdap/Td Vaccine (11 - Td or Tdap) 02/09/2029 02/09/2019, 04/19/2018, 04/19/2018, Additional history exists Hepatitis B Screening Completed 09/19/1996 , 09/19/1996, 1995, Additional history exists HPV Vaccines Completed 03/10/2010, 02/20, 02/19/2009, Additional history exists Hepatitis C Screening Completed 05/22/2024 Pneumococcal vaccine <65 Aged Out No longer eligible based on patient's age to complete this topic Procedures Procedure Name Priority Date/Time Associated Diagnosis Comments HEPATITIS C ANTIBODY Routine 05/22/2024 2:34 PM CDT Immunity status testing PAP WITH REFLEX TO HIGH RISK HPV Routine 09/29/2023 9:15 AM TRACK REPAIR PERSON Screening for malignant neoplasm of cervix from Last 3 Months or Most Recently Relevant to Health Maintenance Results * Hepatitis C antibody Blood (05/22/2024 2:34 PM CDT) Hep C Ab Nonreactive Nonreactive Comment: Interpretive Data Nonreactive: Antibodies to HCV not detected. Does NOT exclude the possibility of recent exposure to HCV. Equivocal: Equivocal for HCV antibodies. Supplemental molecular testing will be automatically performed to determine infection status in accordance with current CDC screening recommendations. Reactive: Positive for HCV antibodies. This may represent current or past HCV infection. Supplemental molecular testing will be automatically performed to determine current infection status in accordance with current CDC screening recommendations. Interpretive data was last revised on 2019. Testing performed by: [facility], [address] [place] [address]., [id number] Blood 05/22/2024 2:34 PM CDT 05/22/2024 7:57 PM CDT Oscar Medina MD LAB MICROBIOLOGY - GENERAL ORDERABLES Final Result [facility] [address] Department of Laboratories [place], [place] [id number] * Pap with reflex to High Risk HPV and Genotyping (Cytology Component) (09/29/2023 9:15 AM TRACK REPAIR PERSON) Thin prep (Pap test) 09/29/2023 9:15 AM TRACK REPAIR PERSON 09/29/2023 9:15 AM TRACK REPAIR PERSON Narrative PATHOLOGY - 10/05/2023 3:14 PM TRACK REPAIR PERSON [facility] Department of Pathology [address] [place] [id number] Final Report Note to Patients: This report may contain a detailed description of human tissue sent by a health care provider to the laboratory for pathologic evaluation. The content of this report is essential for diagnosis and may provide important critical findings. This information may be unfamiliar to patients to review without a medical professional present. It is advised that the patient review this report in the presence of a health care provider who can answer questions and explain the details. Patient Name: JAK BROOKS Address: [address] [place] [address], [place] [address] Gender: F : 1995 (Age: 28) Service: Location: [facility] : [id number] [facility] #: [id number] Patient Type: SPECIMEN Taken: 09/29/2023 Received: 09/29/2023 Accessioned:: 09/30/2023 Reported: 10/05/2023 Physician(s): Yanira Almonte D.O. Diagnosis: SOURCE OF SPECIMEN Imaged Thinprep Pap Test w/ Reflex HPV - Court Administrator Cytologic Material: STATEMENT OF ADEQUACY - Satisfactory for evaluation; endocervical/transformation zone component present GENERAL CATEGORIZATION: - Negative for intraepithelial lesion or malignancy INTERPRETATION: - Reactive/reparative cell changes - Predominance of coccobacilli consistent with shift in vaginal megan. Possible bacterial vaginosis KAYLEE Solorio(ASCP)Sergio Lopez M.D. Report Electronically Reviewed and Signed Out By Sergio Lopez M.D. 10/05/2023 15:14:19Specimen(s) Received: A: Imaged Thinprep Pap Test w/ Reflex HPV - Court Administrator Cytologic Material Clinical History: Last Menstrual Period: 09/22/23 The Pap test is a screening test used to aid in the detection of cervical cancer and its precursors. It should not be the sole means by which malignant and premalignant lesions are diagnosed. Both false negative and false positive results may occur. It also has poor sensitivity for the detection of endometrial lesions and should not be used to evaluate suspected endometrial abnormalities. For these reasons it is most important to obtain Pap tests at regular intervals. The performance characteristics of some immunohistochemical stains, fluorescence in-situ hybridization tests and immunophenotyping by flow cytometry cited in this report (if any) were determined by the Surgical Pathology Department at [facility] as part of an ongoing supplier quality specialist program and in compliance with federally mandated regulations drawn from the Clinical Laboratory Improvement Act of 1988 (CLIA '88). Some of these tests rely on the use of analyte specific reagents and are subject to specific labeling requirements by the US Food and Drug Administration. Such diagnostic tests may only be performed in a facility that is certified by the Department of Health and Human Services as a high complexity laboratory under CLIA '88. The FDA has determined that such clearance or approval is not necessary. This test is used for clinical purposes. It should not be regarded as investigational or for research. Nevertheless, federal rules concerning the medical use of analyte specific reagents require that the following disclaimer be attached to the report: This test was developed and its performance characteristics determined by the Surgical Pathology Department [facility]. It has not been cleared or approved by the U. S. Food and Drug Administration. Orly Canales DO LAB CYTOLOGY ORDERABLES Final Result PATHOLOGY [address] [place] [address] from Last 3 Months or Most Recently Relevant to Health Maintenance Insurance [facility] [id number] [facility] Care Teams Educator Senior Clinical Relationship Specialty Start Date End Date Oscar Medina MD PCP - General Internal Medicine 05/30/18
[2025-07-09 03:11] VITALS: BP 115/76; PULSE 76; RESP 16; O2SAT 99
== END 2025-07-09 03:11 | disposition home or self-care (01) ==
PROVIDERS: Emergency Medicine; PCP Internal Medicine
DX: N39.0 Urinary tract infection, site not specified (principal); R11.2 Nausea with vomiting, unspecified
CPT/HCPCS: 36415; 80053; 81001; 81025; 83690; 85025; 96361; 96374; 96375; 99284; J1885; J2405; J7030

== ENCOUNTER 2025-07-16 09:51 | Emergency (ER) | payer BC, SELFPAY ==
--- NOTE | 2025-07-16 09:55 | ED_ITS ---
HPI - Female Genitourinary General Chief complaint: Urogenital-Female Stated complaint: YEAST INFECTION Time Seen by Provider: 07/16/25 10:03 Source: patient, RN notes reviewed and old records reviewed Mode of arrival: ambulatory Limitations: no limitations History of Present Illness HPI Narrative: 29-year-old female presents to the [facility] with concerns for a yeast infection. Reports discomfort, some burning, irritation vaginally. Started yesterday. No treatment prior to arrival. Patient recently on antibiotics for a UTI which she reports she is not having issues. Denies concerns for STIs. Denies any frequency urgency or burning with urination. Related Data Home Medications ?Medication ?Instructions ?Recorded ?Confirmed ?Last Taken ?Type norethindrone 1 mg-ethinyl tablet 10/14/24 Unknown Hi story estradiol 20 mcg (24)-iron 75 mg (4) tablet (Blisovi 24 Fe) Allergies Allergy/AdvReac Type Severity Reaction Status Date / Time No Known Allergies Allergy Unknown Verified 07/16/25 09:58 Review of Systems Review of Systems: All systems reviewed & are unremarkable except as noted in HPI and below Constitutional: Constitutional: Reports no additional constitutional complaints ENT: Reports system reviewed and no additional complaints, except as documented Cardiovascular: Cardiovascular: Reports no additional cardiovascular complaints, Denies chest pain and Denies dyspnea Respiratory: Respiratory: Reports no additional respiratory complaints, Denies chest congestion, Denies cough and Denies dyspnea Genitourinary: Genitourinary: Reports as per HPI Musculoskeletal: Musculoskeletal: Reports no additional musculoskeletal complaints Integumentary/Breasts: Skin/Breast: Reports system reviewed and no additional complaints, except as docu [facility] Past Medical History Medical History History of strep sore throat Family History Family History Other Hypertension Social History Social History Smoking status: Never smoker Alcohol intake: never Comments At the time of my signature, I reviewed and agree with the nursing past medical, surgical, social, and family history. There is no relevant family history pertinent to the patient complaint. Exam Const: General: cooperative, healthy appearing, comfortable, no acute distress, well developed, alert and well nourished Nutritional Appearance: well nourished Orientation/consciousness: patient oriented x3 Limitations: no limitations HENMT: Head: normal to inspection Eyes: General: appearance normal, both eyes and all related structures Alignment and Position: alignment normal Neck: Neck: normal visual inspection, full ROM, no lymphadenopathy and no meningeal signs Chest: Chest palpation & inspection: normal inspection of the chest Resp: Effort & Inspection: normal respiratory effort and able to speak in complete sentences Auscultation: clear to auscultation bilaterally, no crackles, no rales, no rhonchi and no wheezes Cardio: Rate: regular rate GI: GI Palp: No abdominal tenderness : General: Yes no CVA tenderness Skin: General skin exam: normal color and no rashes or lesions noted Neuro: General: patient oriented x3, gait normal, moves all extremities and no meningeal signs Cognition (Neuro): normal cognition Speech: normal speech Gait exam (Neuro): Normal gait present Extrem: General: normal to inspection, full ROM, capillary refill normal and normal gait Psych: Appearance: grossly normal and well kempt Mental Status: mental status grossly normal Speech and movement: Normal speech and movement present and Clear speech present Affect: normal affect Attitude: cooperative Course Course Level of Care: Express Care Visit Vital Signs Vital signs: Vital Signs Temperature 97.4 F L 07/16/25 10:01 Pulse Rate 97 07/16/25 10:01 Respiratory Rate 16 07/16/25 10:01 Blood Pressure 116/82 07/16/25 10:01 Pulse Oximetry 98 07/16/25 10:01 Temperature 97.4 F L 07/16/25 10:01 Pulse Rate 97 07/16/25 10:01 Respiratory Rate 16 07/16/25 10:01 Blood Pressure 116/82 07/16/25 10:01 Pulse Oximetry 98 07/16/25 10:01 Reviewed MDM - Female Genitourinary MDM Narrative Medical decision making narrative: Patient sitting in exam room. Patient is nontoxic, vitals stable. Patient presents requesting treatment for a yeast infection. No treatment prior to arrival. Recently on antibiotics. History of yeast infections. Due to patient's history, history, antibiotics will cover with Diflucan, encouraged tcvo-gox-lwvzrre products as well for symptom management. Discharge instructions reviewed with patient, as well as provided in writing per nursing staff. The instructions also include specific and strict return/GO TO THE ER as well as f/u information. All questions have been answered, and the patient deny any further questions with discharge and discharge plan. Some parts of this dictation were generated by voice recognition software and may contain typographical and/or grammatical inaccuracies. Differential Diagnosis Differential diagnosis: Likely urinary tract infection, bacterial vaginosis, trichomoniasis, vaginitis, cystitis and other ( Use) Critical Care Time Critical Care Time Critical Care Time: No Discharge Plan Discharge Clinical Impression: Yeast infection Patient Disposition: Home Condition: Stable Instructions: Antibiotic Form, Yeast Infection (ED) Additional Instructions: Take medication as prescribed use ortr-dlt-qaxfjgd products as well for more relief. Follow-up with infusion rn provider if symptoms are not resolving Patient Language: Senegalese Prescriptions: New fluconazole 150 mg tablet 150 mg PO ONCE Qty: 1 0RF Rx Instructions: as a single dose No Action Blisovi 24 Fe 1 mg-20 mcg (24)/75 mg (4) tablet Follow-up/Referrals: Lc,Oscar Varner MD [Primary Care Provider, Unknown] - 1 Week Clinical Impression: Yeast infection Time of Disposition: 10:15
[2025-07-16 10:01] VITALS: BP 116/82; PULSE 97; RESP 16; TEMP 36.3; O2SAT 98
== END 2025-07-16 10:20 | disposition home or self-care (01) ==
PROVIDERS: Emergency Provider Nurse Practitioner; PCP Internal Medicine
DX: B37.31 Acute candidiasis of vulva and vagina (principal)
CPT/HCPCS: 99213; G0463

== ENCOUNTER 2025-08-05 17:04 | Outpatient (CLI) | payer BC, SELFPAY ==
[2025-08-05 18:15] LABS: Syphilis IgG/IgM Antibody Non-Reactive (Nonreactive)
[2025-08-05 18:17] LABS: Hepatitis B Surface Antigen Negative (Negative)
[2025-08-05 18:23] LABS: HAV RESULT Negative (Negative); Hepatitis B Core IgM Result Negative (Negative)
--- OUTSIDE RECORDS SUMMARY | 2025-08-05 18:24 | XMS_ITS | Clinical Summary ---
Author Organization [facility] Address [address] [place] [address] Care Team Providers Care Foiling Machine Operator Name Role Phone Connie Gallardo MD Primary Care Provider [phone] Source Comments [facility],non-owned Affiliates and Associated Physician Practices is amultiple site organization consisting of ambulatory clinics and hospital sitesin [place], [place], [place] and [place]. This disclosure is being madepursuant to the Care Everywhere program and may not contain all information available regarding this patient. Last updated 18.[facility] Allergies No known active allergies Medications * Be aware that medications may not be up to date on this document. Alwaysverify current medications with the patient. naproxen (NAPROSYN) 500 MG tablet Take 500 mg by mouth 2 times daily. Active EPIDUO 0.1-2.5 % gel APPLY TO AFFECTED AREA EVERY EVENING 45 g 04/07/2017 Active Active Problems Problem Noted Date Diagnosed Date Acne 04/04/2012 Immunizations Immunization Administration Dates Next Due DPT 04/05/2001, 7,01/23/1996,10/11 DTaP VACCINE IM (6wk-6yrs) 04/09/1998 HEP A PEDS 2 DOSE 03/19/2008,02/28/2007 HEP B VACCINE, PED/ADOL 09/19/1996,1995, HIB BOOSTER 04/09/1998, 7,01/23/1996,10/11 Human Papilloma Virus Millicent valent Vaccine 03/10/2010 Human Papilloma Virus Vaccine 02/19/2009, 007 MENINGOCOCAL MENINGITIS 02/28/2007 MENINGOCOCCAL ACWY (MCV4P) VAC IM 12/31/2013 MMR 03/29/2019,04/05/2001,09/19/1996 POLIO IPV 04/05/2001 POLIO OPV 01/23/1996,1995 PPD 04/05/2001,04/09/1998 TDAP (7yrs+) 04/19/2018,04/04/2006 Social History Tobacco Use Types Packs/Day Years Used Date Smoking Tobacco: Never Alcohol Use Standard Drinks/Week Comments No 0 (1 standard drink = 0.6 oz pur e alcohol) Comments No Sex and Gender Information Value Date Recorded Sex Assigned at Not on file Legal Sex Female 9:02 AM FASHION PHOTOGRAPHER Gender Identity Not on file Sexual Orientation Not on file Last Filed Vital Signs Vital Sign Reading Time Taken Comments Blood Pressure 126/76 05/13/2015 1:13 PM CDT Pulse 72 05/13/2015 1:13 PM CDT Temperature 36.8 C (98.2 F) 06/25/2014 9:08 AM FASHION PHOTOGRAPHER Respiratory Rate - - Oxygen Saturation - - Inhaled Oxygen Concentration - - Weight 68.4 kg (150 lb 12.8 oz) 05/13/2015 1:13 PM CDT Height 161.3 cm (5' 3.5) 05/13/2015 1:13 PM CDT Body Mass Index 26.29 05/13/2015 1:13 PM CDT Plan of Treatment Health Maintenance Due Date Last Done Comments HIV SCREENING 2010 HEPATITIS C SCREENING 07/12/2013 DEPRESSION SCREENING 08/22/2024 COVID-19 VACCINE ( season) 2025 INFLUENZA VACCINE (#1) 2025 DTAP/TDAP/TD VACCINES (8 - Td or Tdap) 04/19/2028 04/19/2018, 04/04/2006, 04/05/2001, Additional history exists ZOSTER VACCINE (1 of 2) 2045 HEPATITIS B VACCINE Completed 09/19/1996, 1995, 1995 HIB VACCINE Completed 04/09/1998, 08/23, 01/23/1996, Additional history exists HPV VACCINE Completed 03/10/2010, 07/0 08/2008, 02/28/2007 MENINGOCOCCAL GROUPS A/C/Y/W VACCINE Completed 12/31/2013, 02/28/2007 MENINGOCOCCAL (Group B) VACCINE SHARED DECISION-MAKING Aged Out No longer eligible based on patient's age to complete this topic PNEUMOCOCCAL VACCINE Aged Out No long er eligible based on patient's age to complete this topic Goals Goal Patient Goal Type Associated Problems Recent Progress Patient-Stated? Author Use safety retraint in car Lifestyle On track( 015 1:16 PM CDT) No Johanne Turk RN Insurance [employer] * Guarantor: JAK KUMARI Account Type Relation to Patient Date of Phone Billing Address Personal/Family 1995 [place] [address] KUMARI [address] [place] [address] Care Teams Foiling Machine Operator Relationship Specialty Start Date End Date Connie Gallardo MD PCP - General Pediatrics 06/25/14
--- OUTSIDE RECORDS SUMMARY | 2025-08-05 18:24 | XMS_ITS | Data Portability ---
Author Organization [employer], [facility] Address [address] [address] Assessment No assessment recorded. Plan of Treatment [...] Updated DateTime 07/25/2017 162.56 cm 25.7 kg/m2 64700.86 g 80 /min 111/68 mm[Hg] Calvin Brandon Discourse 07/25/2017 14:19:27 Social History Question Answer Notes LastModified by Organizat ion Details LastModified Time Tobacco Smoking Status Never Smoker Calvin banks Discourse 07/25/2017 14:20:25 Marital Status Single Informatio n [...] Hyperthyroidism N Head Trauma/Injury Y Hernia N COPD N Depression N Hypothyroidism N Lung Disease N Blood Clots N Pacemaker N Anxiety Disorder N Arthritis N Cancer N Stroke N Neck Injury N Leg or Foot Ulcers N High Cholesterol N Liver Disease N Rheumatoid Arthritis N Headaches N Fibromyalgia N Kidney Disease N Heart Problems N Migraines N Thyroid Problems N Anemia N Multiple Sclerosis N Ulcers N Heart Attack ([place]) N Diabetes N Bleeding Disorder N Seizures/Epilepsy [...] ICD10 Code Diagnosis IMO Codes Diagnosis Note [id number] Wander Salas MD [facility] [address] [place] [address] 07/25/2017 13:50:19 07/25/2017 16:54:03 Concussion with no loss of consciousness [id number] S06.0X0A Health Concerns Section Related Observation LastModified by Organization Detai ls LastModified Time None Recorded Concern Status LastModified by Organization Details LastModified Time None Recorded Advance Directives Directive None Recorded Payers Insurance Date Sequence Insurance Name Policy Number Policy Oliver Covered Member ID Loiver Member ID Guarantor Name 07/25/2017 1 [employer] - DOS PRIOR TO 21 - [facility] BENEFITS PL[facility] Elizabeth Brooks [id number] Leeah Todd OBGyn Episode No OBEpisode recorded.
--- OUTSIDE RECORDS SUMMARY | 2025-08-05 18:24 | XMS_ITS | Clinical Summary ---
Author Organization [facility] [address] [employer] [address] Address [address] [place] [address] Phone Care Team Providers Care Director Dance Name Role Phone Oscar Medina MD Primary Care Provider [phone] Allergies No known active allergies Medications norethindrone-e. estradioL-iron (Blisovi 24 Fe) 1 mg-20 mcg (24)/75 mg (4) per tablet Take 1 tablet by mouth daily 84 tablet 3 5 Active Additional Information Patient not taking.Reported on 08/01/2025 adapalene-benzoy l peroxide 0.1-2.5 % gel with pumpIndications: Acne, unspecified acne type APPLY ONCE DAILY TO THE FACE 45 g 1 5 Active semaglutide (Wegovy) 1.7 mg/0.75 mL auto-injectorInd ications:Obesity , Class I, BMI 30-34.9 Inject 1.7 mg under the skin every 7 days 3 mL 1 5 Active Additional Information Patient not taking.Reported on 08/01/2025 ondansetron (ZOFRAN) 4 mg tabletIndication s:Nausea and Vomiting Take 1 tablet (4 mg total) by mouth every 8 (eight) hours as needed for nausea or vomiting 21 tablet 5 Active Additional Information Patient not taking.Reported on 08/01/2025 metroNIDAZOLE (FLAGYL) 500 mg tablet Take 1 tablet (500 mg total) by mouth 2 (two) times a day for 7 days 14 tablet 5 08/09/20 25 Active fluconazole (DIFLUCAN) 150 mg tablet Take 1 tablet (150 mg total) by mouth daily Take one tab now. Repeat in 7 days if symptoms persist. 2 tablet 5 Active Active Problems Problem Noted Date Diagnosed [...] vaccine. 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 Patient is started on Wegovy approximately 6 weeks ago she is tolerating medication. She has no other health concerns other than weight reduction. Assessment & Plan (09/09/2023 2:10 PM ART THERAPY CERTIFIED SUPERVISOR): 28-year-old lady who is here for annual exam she feels well her only active health problems his active. 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 Immunizations reviewed states varicella as needed I have given this information on to the patient to review her old records on immunizations. She has a pharmacist determine if she needs another injection Acne 04/04/2012 Assessment & Plan (09/09/2023 2:13 PM ART THERAPY CERTIFIED SUPERVISOR): Acne well controlled with epiduo- 0.2-2.5% gel with pump./adapalene- benzoyl peroxide. Resolved Problems Problem Noted Date Diagnosed Date Resolved Date School physical exam 06/02/2018 024 Assessment & Plan (04/03/2021 2:00 PM CDT): Patient has to have a school physical. 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 Patient's exam is completely normal. 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 Appropriate forms were filled out BC was necessary and patient was given a copy original forms to forward back to her University. Patient has has on file at the [place] [facility] her immunization record. Assessment & Plan (02/09/2019 [...] patient exam is benign. 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 Encounters Date Type Department Care Team Description 08/02/2025 Results Follow-Up [facility] at [address] [phone] Yulisa Tai NP Vaginitis panel Vaginal, N. gonorrhoeae/C. trachomatis Amplification Vaginal 08/01/2025 6:02 PM ART THERAPY CERTIFIED SUPERVISOR - 08/01/2025 11:59 PM ART THERAPY CERTIFIED SUPERVISOR Hospital Encounter [address] [address] Screening examination for STD (sexually transmitted disease) Discharge Disposition: Discharge to home or self care 08/01/2025 6:00 PM ART THERAPY CERTIFIED SUPERVISOR Office Visit [facility] at [address] [phone] Yulisa Tai NP Screening examination for STD (sexually transmitted disease) (Primary Dx) 05/06/2025 Telephone [facility] [address] [place] [phone] Oscar Medina MD from Last 3 Months [...] on file Legal Sex Female 3:22 AM ART THERAPY CERTIFIED SUPERVISOR Gender Identity Not on file Sexual Orientation [...] Sign Reading Time Taken Comments Blood Pressure 125/75 08/01/2025 5:33 PM ART THERAPY CERTIFIED SUPERVISOR Pulse 74 08/01/2025 5:33 PM ART THERAPY CERTIFIED SUPERVISOR Temperature 36.8 C (98.3 F) 08/01/2025 5:33 PM ART THERAPY CERTIFIED SUPERVISOR Respiratory Rate 18 08/01/2025 5:33 PM ART THERAPY CERTIFIED SUPERVISOR Oxygen Saturation 99% 08/01/2025 5:33 PM ART THERAPY CERTIFIED SUPERVISOR Inhaled Oxygen Concentration - - Weight 80.6 kg (177 lb 9.6 oz) 08/01/2025 5:33 P M ART THERAPY CERTIFIED SUPERVISOR Height 162.6 cm (5' 4.02) 08/01/2025 5:33 PM CS T Body Mass Index 30.47 08/01/2025 5:33 PM ART THERAPY CERTIFIED SUPERVISOR Plan of Treatment Health Maintenance Due Date [...] Procedure Name Priority Date/Time Associated Diagnosis Comments VAGINITIS PANEL Routine 08/01/2025 6:02 PM ART THERAPY CERTIFIED SUPERVISOR Screening examination for STD (sexually transmitted disease) N. GONORRHOEAE/C. TRACHOMATIS AMPLIFICATION Routine 08/01/2025 6:02 PM ART THERAPY CERTIFIED SUPERVISOR Screening examination for STD (sexually transmitted disease) HEPATITIS C ANTIBODY Routine 05/22/2024 2:34 PM CDT Immunity status testing PAP WITH REFLEX TO HIGH RISK HPV Routine 09/29/2023 9:15 AM ART THERAPY CERTIFIED SUPERVISOR Screening for malignant neoplasm of cervix from Last 3 Months or Most Recently Relevant to Health Maintenance Results * N. gonorrhoeae/C. trachomatis Amplification Vaginal (08/01/2025 6:02 PM ART THERAPY CERTIFIED SUPERVISOR) C. trachomatis Not Detected [facility] Comment:Testing performed by : [facility], [address] [place]., [address] N. gonorrhoeae Not Detected [facility] Comment: Interpretive Data This assay detects Chlamydia trachomatis and Neisseria gonorrhoeae by nucleic acid amplification testing (NAAT). This assay has been cleared by the [place] Food and Drug administration. The performance characteristics of this test have been verified by the [facility] Molecular Infectious Disease laboratory. The performance characteristics of this test have not been evaluated in individuals less than 14 years of age. Current Interpretive Data was last revised on 2023. Testing performed by: [facility], [address] [place] [place]., [address] Vaginal (None) 08/01/2025 6: 02 PM ART THERAPY CERTIFIED SUPERVISOR 08/02/2025 10:49 AM ART THERAPY CERTIFIED SUPERVISOR us Yulisa Tai NP LAB MICROBIOLOGY - GENERAL ORDERABLES Final Result [facility] [id number] Department [place] [address] BJ * (ABNORMAL) Vaginitis panel Vaginal (08/01/2025 6:02 PM ART THERAPY CERTIFIED SUPERVISOR) Pathologist [facility] Bacterial Vaginosis Detected(A) Not Detected Comment:The BV organism targ ets of this test can be commensal in women; results should be considered in conjunction with clinical presentation to determine the disease status. Wendi group Detected(A) Not Detected [facility] Comment:Wendi species can be present as commensal organisms in women; results should be considered in conjunction with clinical presentation to determine the disease status. Wendi glabrata/ krusei Not Detected Not Detected [facility] Trichomonas DNA Not Detected Not Detected [facility] Vaginal 08/01/2025 6:02 PM ART THERAPY CERTIFIED SUPERVISOR 08/01/2025 9:30 PM ART THERAPY CERTIFIED SUPERVISOR Narrative [facility] - 08/01/2025 10:39 PM ART THERAPY CERTIFIED SUPERVISOR The [employer] Xpert Xpress MVP test detects DNA targets from anaerobic bacteria associated with bacterial vaginosis, Wendi species associated with vulvovaginal candidiasis, and Trichomonas vaginalis by nucleic acid amplification testing (NAAT). Results should be interpreted in conjunction with other clinical data. This test cannot be used to assess therapeutic success or failure because target nucleic acids may persist following antimicrobial therapy. This test has been cleared by the [place] Food and Drug Administration to aid in the diagnosis of vaginal infections in symptomatic women ages 14 and older. The performance characteristics of this test have been verified by the [facility]. Yulisa Tai NP LAB MICROBIOLOGY - GENERAL ORDERABLES Final Result [facility] [id number] [place] [address] [place] * Hepatitis C antibody Blood (05/22/2024 2:34 PM CDT) [facility] Hep C Ab Nonreactive Nonreactive Comment: Interpretive [...] last revised on 2019. Testing performed by: [facility], [address] [place] [address]., [id number] Blood 05/22/2024 2:34 PM CDT 05/22/2024 7:57 PM CDT Oscar Medina MD LAB MICROBIOLOGY - GENERAL ORDERABLES Final Result [facility] [address] Department [place] [address] * Pap with reflex to High Risk HPV and Genotyping (Cytology Component) (09/29/2023 9:15 AM ART THERAPY CERTIFIED SUPERVISOR) Thin prep (Pap test) 09/29/2023 9:15 AM ART THERAPY CERTIFIED SUPERVISOR 09/29/2023 9:15 AM ART THERAPY CERTIFIED SUPERVISOR Narrative PATHOLOGY - 10/05/2023 3:14 PM ART THERAPY CERTIFIED SUPERVISOR [facility] Department of Pathology [address] [place] [id number] Final Report Note to Patients: This [...] the details. Patient Name: JAK BROOKS Address: [address] [place] [address], [place] [address] Gender: F : 1995 (Age: 28) Service: Location: N : [id number] [facility] #: [id number] Patient Type: SPECIMEN Taken: 09/29/2023 Received: 09/29/2023 Accessioned:: 09/30/2023 Reported: 10/05/2023 Physician(s): Yanira Almonte Sauer, D.O. Diagnosis: SOURCE OF SPECIMEN Imaged Thinprep Pap Test w/ Reflex HPV - Cement Based Materials Pump Tender Cytologic Material: STATEMENT OF ADEQUACY - Satisfactory [...] Thinprep Pap Test w/ Reflex HPV - Cement Based Materials Pump Tender Cytologic Material Clinical History: Last Menstrual Period: [...] determined by the Surgical Pathology Department at [facility] as part of an ongoing lead quality technician program and in compliance with federally mandated [...] characteristics determined by the Surgical Pathology Department [facility]. It has not been cleared or approved by the [place]. [place]. Food and Drug Administration. Orly Canales DO LAB CYTOLOGY ORDERABLES Final Result [facility] [address] [place] [address] from Last 3 Months or Most Recently Relevant to Health Maintenance Insurance [employer] [facility] [id number] [facility] ANTH ACCESS Care Teams Director Dance Relationship Specialty Start Date End Date Oscar Medina MD PCP - General Internal Medicine 05/30/18
--- OUTSIDE RECORDS SUMMARY | 2025-08-05 18:24 | XMS_ITS | Clinical Summary ---
Author Organization [facility] Address [address] [address] Care Team Providers Care Rotary Drier Name Role Phone Pcp, No Primary Care Provider [phone] Allergies No known active allergies Medications adapalene-benzo yl peroxide 0.1-2.5 % glwp APPLY TO FACE DAILY 0 9 Active BLISOVI 24 FE 1 mg-20 mcg (24)/75 mg (4) tablet TAKE 1 TABLET BY MOUTH EVERY DAY 4 9 Active adapalene-benzo yl peroxide 0.3-2.5 % glwp Apply 1 application topically daily. Apply a pea-sized, thin layer to affected area once daily after cleansing 45 g 1 Active Social History Tobacco Use Types Packs/Day Years Used Date Smoking Tobacco: Never Smokeless Tobacco: Never Comments No Sex and Gender Information Value Date Recorded Sex Assigned at Not on file Legal Sex Female 9:52 AM EST Gender Identity Not on file Sexual Orientation Not on file Last Filed Vital Signs Vital Sign Reading Time Taken Comments Blood Pressure 110/70 06/30/2019 2:52 PM EST Pulse 91 12/14/2020 2:17 PM EDT Temperature 36.8 C (98.2 F) 12/14/2020 2:17 PM EDT Respiratory Rate 18 06/30/2019 2:52 PM EST Oxygen Saturation 97% 12/14/2020 2:17 PM EDT Inhaled Oxygen Concentration - - Weight - - Height - - Body Mass Index - - Plan of Treatment Not on file Medical Devices [place] [id number] [employer] Member Subscriber Plan / Payer (Ef fective 2022-Present) Name:Ladonna Kumari Member ID:[id number] Relation to Subscriber:Mother Name:TIMUR KUMARI Subscriber ID:[id number] Date of :1958 (Home) Address: [address] [place] [address] [place] [id number] Payer ID:Not on file Type:Not on file Address: [facility] [id number] [place] [address] Care Teams Rotary Drier Relationship Specialty Start Date End Date Ryann, Rosa PCP - General Family Medicine 12/20/20
[2025-08-05 18:27] LABS: HIV 1/2 Ab P24 Ag Result Negative (Negative)
== END 2025-08-05 17:05 | disposition home or self-care (01) ==
LOC: ANHLAB 17:08
PROVIDERS: PCP Internal Medicine
DX: Z11.3 Encounter for screening for infections with a predominantly sexual mode of transmission (principal)
CPT/HCPCS: 36415; 80074; 86593; 86703; G0432